=== PATIENT | female | born 1965 | race Caucasian/White ===

== ENCOUNTER 2018-03-14 07:52 | Outpatient (CLI) | payer OTHER ==
--- NOTE | 2018-03-14 10:08 | MRI ---
MRI LUMBAR SPINE WITHOUT CONTRAST: Date: 03/14/18 COMPARISON: 07/16/16. HISTORY: Back pain with left lower extremity radiculopathy, including left hip pain and anterior left thigh nu mbness. TECHNIQUE: Multiplanar, multisequence MR imaging of the lumbar spine is obtained without contrast. FINDINGS: The sagittal STIR imaging demonstrates no focal area of osseous marrow edema. Assuming five lumbar-type vertebral bodies, the conus medullaris terminates at the L1 level. T12-L1: Intervertebral disc height and signal intensity within normal limits. No significant central canal or neural foraminal stenosis. L1-2: Mild bilateral facet hypertrophy. There is disc space narrowing with disc bulge and disc desic cation. No significant central canal stenosis. There is a small foraminal disc protrusion on the left . No associated neural foraminal stenosis. L2-3: Mild bilateral facet hypertrophy. Intervertebral disc height and signal intensity grossly unre markable with no significant central canal or neural foraminal stenosis. L3-4: Bilateral mild facet hypertrophy. Disc desiccation and minimal disc bulge with no significant central canal or neural foraminal stenosis. There is an annular tear in the right foraminal region. No central canal or neural foraminal stenosis . L4-5: Disc space narrowing and disc desiccation with minimal disc bulge. No central canal stenosis. Mild bilateral facet hypertrophic. Mild bilateral neural foraminal stenosis. L5-S1: There is disc space narrowing and disc desiccation with mild disc bulge and degenerative end plate change. No significant central canal stenosis. Bilateral facet hypertrophy is noted with modera te/severe bilateral neural foraminal stenosis, not significantly changed. Hemangioma noted within L3 vertebral body. The imaged retroperitoneal structures demonstrate no acute findings. IMPRESSION: Multilevel degenerative change noted within the lumbar spine, not significantly changed when compared to prior imaging. POS: AMBROCIO
== END 2018-03-14 07:53 | disposition home or self-care (01) ==
LOC: BICMRI 07:52
PROVIDERS: ATTEND Nurse Practitioner Family
DX: M51.16 Intervertebral disc disorders with radiculopathy, lumbar region (principal); M47.26 Other spondylosis with radiculopathy, lumbar region
CPT/HCPCS: 72148

== ENCOUNTER 2020-05-08 13:55 | Outpatient (CLI) | payer OTHER ==
--- NOTE | 2020-05-08 14:37 | RAD ---
LUMBAR SPINE SERIES 4 VIEWS TO INCLUDE FLEXION AND EXTENSION: HISTORY: Back pain. Left-sided radiculopathy. FINDINGS: The vertebral bodies are normal in height. There is disk narrowing at the L5-S1 and L1-2 levels. I do not appreciate any abnormal motion on the flexion and extension views. Pedicles are intact. IMPRESSION: Arthritic changes of the spine. POS: BON
== END 2020-05-08 13:56 | disposition home or self-care (01) ==
LOC: BICRAD 13:55
PROVIDERS: ATTEND Specialist
DX: M51.16 Intervertebral disc disorders with radiculopathy, lumbar region (principal); M47.26 Other spondylosis with radiculopathy, lumbar region
CPT/HCPCS: 72110